=== PATIENT | male | born 1980 | race Caucasian/White ===

== ENCOUNTER 2018-09-20 04:48 | Emergency (ER) | payer BC ==
[~2018-09-20] VITALS: Ht 180.3 cm; Wt 172.7 kg
[2018-09-20 04:54] VITALS: Ht 180.3 cm; Wt 172.7 kg
[2018-09-20] MEDS ORDERED: NORVASC10 MG PO (04:55)
[2018-09-20] MEDS ORDERED: COZAAR100 MG PO (04:55)
[2018-09-20 05:29] LABS: BASOPHILS 0.4 % (0-2); EOSINOPHILS 3.8 % (0-7); HEMATOCRIT 41.5 % (42.0-54.0); HEMOGLOBIN 14.6 g/dL (13.5-17.5); IMMATURE GRANULOCYTES 0.1 % (0-5); LYMPHOCYTES 36.7 % (15-50); MCH 31.2 pg (26.0-34.0); MCHC 35.2 g/dL (31.0-37.0); MCV 88.7 fL (80.0-100.0); MEAN PLATELET VOLUME 9.2 fL (7.4-10.4); MONOCYTES 5.7 % (2-11); NEUTROPHILS 53.3 % (40-80); PLATELET COUNT 218 10x3/uL (130-400); RBC 4.68 10x6/uL (4.20-6.10); RDW 13.6 % (11.5-14.5); WBC 7.8 10x3/uL (4.8-10.8)
[2018-09-20 05:41] LABS: APTT 23.7 SECONDS (22.8-39.4); PROTIME 12.7 SECONDS (11.6-15.0)
[2018-09-20 05:44] LABS: ALBUMIN 3.2 g/dL (3.4-5.0); ALKALINE PHOSPHATASE 55 U/L (46-116); ALT (SGPT) 30 U/L (10-68); BILIRUBIN - TOTAL 0.16 mg/dL (0.2-1.3); CALC OSMOLALITY 284 mosm/kg (275-300); CALCIUM 8.1 mg/dL (8.5-10.1); CHLORIDE - SERUM 107 mmol/L (98-107); GLUCOSE 148 mg/dL (74-106); POTASSIUM - SERUM 3.7 mmol/L (3.5-5.1); PROTEIN - SERUM 6.6 g/dL (6.4-8.2); SODIUM 141 mmol/L (136-145); UREA NITROGEN 14 mg/dL (7-18); eGFR NON AFRICAN AMERICAN 90 mL/min (90-120)
[2018-09-20 05:55] LABS: CKMB 1.1 U/L (0.0-3.6); CREATINE KINASE 104 UL (21-232)
[2018-09-20 05:59] LABS: TROPONIN-I < 0.017 ng/mL (0.000-0.060)
[2018-09-20 07:26] VITALS: BP 95/51
== END 2018-09-20 07:27 | disposition home or self-care (01) ==
LOC: D.ER 04:48
PROVIDERS: Family Medicine
DX: R07.9 Chest pain, unspecified (principal); I10 Essential (primary) hypertension; F17.200 Nicotine dependence, unspecified, uncomplicated

== ENCOUNTER 2019-06-24 13:27 | Day surgery (SDC) | payer BC ==
[~2019-06-24] VITALS: Ht 180.3 cm; Wt 155.0 kg
[~2019-06-24 13:27] MED LIST: COZAAR100 MG PO; NORVASC10 MG PO
[2019-06-24 13:49] LABS: BASOPHILS 0.3 % (0-2); EOSINOPHILS 0.8 % (0-7); HEMATOCRIT 47.7 % (42.0-54.0); HEMOGLOBIN 16.8 g/dL (13.5-17.5); IMMATURE GRANULOCYTES 0.2 % (0-5); LYMPHOCYTES 21.9 % (15-50); MCH 31.8 pg (26.0-34.0); MCHC 35.2 g/dL (31.0-37.0); MCV 90.2 fL (80.0-100.0); MEAN PLATELET VOLUME 9.1 fL (7.4-10.4); MONOCYTES 5.1 % (2-11); NEUTROPHILS 71.7 % (40-80); PLATELET COUNT 250 10x3/uL (130-400); RBC 5.29 10x6/uL (4.20-6.10); RDW 13.4 % (11.5-14.5); WBC 15.6 10x3/uL (4.8-10.8)
[2019-06-24 13:57] LABS: CALC OSMOLALITY 277 mosm/kg (275-300); CALCIUM 9.3 mg/dL (8.5-10.1); CARBON DIOXIDE 26.6 mmol/L (21.0-32.0); CHLORIDE - SERUM 102 mmol/L (98-107); CREATININE - SERUM 1.1 mg/dL (0.6-1.3); POTASSIUM - SERUM 3.5 mmol/L (3.5-5.1); SODIUM 138 mmol/L (136-145); UREA NITROGEN 19 mg/dL (7-18); eGFR NON AFRICAN AMERICAN 80 mL/min (90-120)
[2019-06-24 13:59] LABS: APTT 23.8 SECONDS (22.8-39.4); GLUCOSE 100 mg/dL (74-106); INR 1.01 (0.85-1.17); PROTIME 12.8 SECONDS (11.6-15.0)
[2019-06-24 14:04] LABS: ALBUMIN 4.1 g/dL (3.4-5.0); ALKALINE PHOSPHATASE 59 U/L (46-116); ALT (SGPT) 38 U/L (10-68); PROTEIN - SERUM 8.1 g/dL (6.4-8.2)
[2019-06-24 15:30] VITALS: BP 107/64
[2019-06-24] MEDS ORDERED: PRISTIQ50 MG PO (16:38)
[2019-06-24] MEDS ORDERED: VITAMIN D250000 UNIT PO (16:39)
[2019-06-24 16:40] VITALS: BP 109/64; Ht 180.3 cm; Wt 155.0 kg
--- NOTE | 2019-06-24 19:26 | NUR ---
PATIENT RESTING IN BED AND DENIES NEEDS AT THIS TIME. BED IN LOWEST POSITION AND CALL LIGHT WITHIN REACH. ENCOURAGED THE PATIENT TO CALL IF HE HAS NEEDS. WILL CONTINUE TO MONITOR.
--- NOTE | 2019-06-24 19:37 | NUR ---
PATIENT TAKEN TO SURGERY
[2019-06-24 20:08] VITALS: BP 117/53
[2019-06-24] MEDS ORDERED: ZOFRAN ODT4 MG/UDTAB PO (21:22)
[2019-06-24] MEDS ORDERED: OXYCODONE HCL5 M1 PO (21:22)
[2019-06-24] MEDS ORDERED: VISTARIL50 MG PO (21:22)
[2019-06-24] MEDS ORDERED: KEFLEX500 MG PO (21:22)
[2019-06-24 22:14] VITALS: BP 134/79
--- NOTE | 2019-06-24 22:28 | NUR ---
UPON TRANSFER BACK TO ROOM 1206 PATIENT'S PAIN LEVEL BECAME 8/10. CONSULTED DR. POLK. VERBAL ORDERS RECEIVED FROM DR. POLK TO ADMINISTER A ONE TIME DOSE OF HYDROCODONE 10/325MG X1. INFORMED TENA MASON RN OF THE ABOVE. ORDERS RECEIVED AND IMPLEMENTED. WILL CONTINUE TO MONITOR.
--- NOTE | 2019-06-24 22:42 | NUR ---
ADMINISTERED PAIN MEDICATION FOR 8/10 PAIN TO PATIENT'S RIGHT ARM. PATIENT VOIDED 450 ML. PATIENT'S O2 98% ON 1.5L. WILL CONTINUE TO MONITOR.
--- NOTE | 2019-06-24 23:45 | NUR ---
SPOKE WITH DR. POLK IN REGARDS TO PATIENT'S O2, 93% ON ROOM AIR AND PATIENT C/O 8/10 PAIN IN HIS RIGHT ARM. DR. POLK ORDERED A ONE TIME DOSE 50MG VISTARIL PO AND STATED THE PATIENT COULD BE D/C'D HOME.
--- NOTE | 2019-06-25 00:10 | NUR ---
PATIENT'S 20G IV REMOVED FROM LEFT AC WITH TIP INTACT
--- NOTE | 2019-06-25 00:15 | NUR ---
PATIENT D/C'D VIA WHEELCHAIR BY EARNESTINE WITH HIS
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
== END 2019-06-25 00:15 | disposition home or self-care (01) ==
LOC: OBSVTIME → D.ER 13:27 → D.OPS 13:27 → D.ER 15:57 → D.M3 15:57 → OBSVTIME 15:57 → D.ER 17:10 → D.M3 06-25 00:15 → D.OPS 06-25 00:15 → D.M3 06-25 00:15
PROVIDERS: Emergency Medicine; ATTEND Orthopaedic Surgery
DX: S52.201A Unspecified fracture of shaft of right ulna, initial encounter for closed fracture (principal); W22.8XXA Striking against or struck by other objects, initial encounter; Y93.9 Activity, unspecified; Y92.9 Unspecified place or not applicable